=== PATIENT | female | born 1990 | race Hispanic/Latino ===

== ENCOUNTER 2018-03-08 22:52 | Emergency (ER) | payer OTHER, SELFPAY ==
[2018-03-09 00:27] LABS: Absolute Lymphocytes (CBC) 3.9 K/uL (0.7-4.9); Absolute Monocytes 0.6 K/uL (0.1-1.3); Basophils % 0.3 % (0-1.3); Eosinophils % 1.1 % (0-4.4); Hematocrit 40.2 % (36.0-45.0); Lymphocytes % 33.4 % (15.3-44.8); MCH 32.9 pg (27.0-35.0); MCV 97.7 fL (80-100); Monocytes % 5.5 % (3.3-12.3); RBC Red Blood Cell Count 4.12 M/uL (3.86-4.86)
[2018-03-09 00:49] LABS: Bicarbonate 28 mEq/L (21-31); Glucose Level 100 mg/dL (65-120); Lipase 21 U/L (22-51); Potassium 3.3 mEq/L (3.6-5.0); Sodium Level 137 mEq/L (135-145)
[2018-03-09 00:55] LABS: ALT/SGPT 23 IU/L (10-60); AST/SGOT 17 IU/L (10-42); Albumin 3.9 g/dL (3.2-5.5); Alkaline Phosphatase 70 IU/L (42-121); BUN Blood Urea Nitrogen 19 mg/dL (6-20); Bilirubin Direct < 0.1 mg/dL (0-0.2); Bilirubin Total 0.7 mg/dL (0.3-1.2); Protein, Total 7.7 g/dL (6.0-8.3)
[2018-03-09] MEDS ORDERED: POTASSIUM 25 MEQ EFFERV TAB ONE (01:30)
--- NOTE | 2018-03-09 01:35 | EDPHYS ---
Physician Documentation [facility] Name: Citlali Wright Age: 27 yrs Sex: Female : 1990 Arrival Date: 03/08/2018 Time: 22:55 Bed 19 Private MD: ED Physician Vladimir Friend HPI: 03/09 01:00 This 27 yrs old Female presents to ER via Ambulatory with complaints of pm1 Nausea/Vomiting, Diarrhea. 01:00 The patient presents to the emergency department with nausea, vomiting, 2 times since pm1 the onset of symptoms, diarrhea, 2 times since the onset of symptoms. Onset: The symptoms/episode began/occurred today. Possible causes: Stomach virus. Associated signs and symptoms: Pertinent positives: diarrhea, nausea, vomiting, Pertinent negatives: abdominal pain, constipation, dysuria, fever. Severity of symptoms: Pain is currently a 0 / 10. The patient has experienced a previous episode, last week. Patient with 24 hour stomach virus 1 week ago. Same symptoms of vomiting and diarrhea. patient was seen at [facility] for the complaint and discharged home. Patient without any vomiting or diarrhea until today. 2 episodes of vomiting and 2 episodes of diarrhea. Patient denies any abdominal pain to me. No fevers. 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 - Social history:: Smoking status: Patient/guardian denies using tobacco, Patient/guardian denies using alcohol. - Ebola Screening: : Patient negative for fever greater than or equal to 101.5 degrees Fahrenheit, and additional compatible Ebola Virus Disease symptoms Patient denies exposure to infectious person Patient denies travel to an Ebola-affected area in the 21 days before illness onset. ROS: 03/09 01:00 Constitutional: Negative for fever, chills, and weight loss, Eyes: Negative for injury, pm1 pain, redness, and discharge, ENT: Negative for injury, pain, and discharge, Neck: Negative for injury, pain, and swelling, Cardiovascular: Negative for chest pain, palpitations, and edema, Respiratory: Negative for shortness of breath, cough, wheezing, and pleuritic chest pain. Back: Negative for injury and pain, : Negative for injury, bleeding, discharge, and swelling, MS/Extremity: Negative for injury and deformity, Skin: Negative for injury, rash, and discoloration, Neuro: Negative for headache, weakness, numbness, tingling, and seizure. Abdomen/GI: Positive for nausea, vomiting, and diarrhea, Negative for abdominal pain. Exam: 01:00 Constitutional: This is a well developed, well nourished patient who is awake, alert, pm1 and in no acute distress. Head/Face: Normocephalic, atraumatic. Neck: Trachea midline, no thyromegaly or masses palpated, and no cervical lymphadenopathy. Supple, full range of motion without nuchal rigidity, or vertebral point tenderness. No Meningismus. Chest/axilla: Normal chest wall appearance and motion. Nontender with no deformity. No lesions are appreciated. Cardiovascular: Regular rate and rhythm with a normal S1 and S2. No gallops, murmurs, or rubs. Normal PMI, no JVD. No pulse deficits. Respiratory: Lungs have equal breath sounds bilaterally, clear to auscultation and percussion. No rales, rhonchi or wheezes noted. No increased work of breathing, no retractions or nasal flaring. 01:00 Back: No spinal tenderness. No costovertebral tenderness. Full range of motion. Skin: Warm, dry with normal turgor. Normal color with no rashes, no lesions, and no evidence of cellulitis. MS/ Extremity: Pulses equal, no cyanosis. Neurovascular intact. Full, normal range of motion. 01:00 Abdomen/GI: Inspection: abdomen appears normal, Bowel sounds: normal, Palpation: abdomen is soft and non-tender, in all quadrants, mass, is not appreciated, rebound tenderness, is not appreciated. 01:00 Neuro: Orientation: is normal, Mentation: is normal, Motor: is normal, moves all fours, Gait: is steady, at a normal pace, without difficulty. Vital Signs: 03/08 23:11 BP 113 / 76; Pulse 66; Resp 20; Temp 98.5(O); Pulse Ox 100% on R/A; Weight 90.72 kg ao (R); Height 4 ft. 11 in. (149.86 cm) (R); Pain 0/10; 03/09 00:22 BP 108 / 66; Pulse 62; Resp 18; Pulse Ox 100% on R/A; mw2 01:26 BP 112 / 68; Pulse 63; Resp 18; Pulse Ox 99% on R/A; ao 03/08 23:11 Body Mass Index 40.39 (90.72 kg, 149.86 cm) ao MDM: 03/08 23:11 Patient medically screened. pm1 03/09 01:30 ED course: patient is feeling better and wants to go home. No episodes of vomiting or pm1 diarrhea in the ER. 01:34 Data reviewed: vital signs. Data interpreted: Pulse oximetry: on room air is 99 %. pm1 Interpretation: normal. Counseling: I had a detailed discussion with the patient and/or guardian regarding: the historical points, exam findings, and any diagnostic results supporting the discharge/admit diagnosis, lab results, the need for outpatient follow up, to return to the emergency department if symptoms worsen or persist or if there are any questions or concerns that arise at home. 03/09 00:02 Order name: Urine Microscopic Only pm1 03/09 00:02 Order name: Basic Metabolic Panel; Complete Time: 01:08 pm03/09 00:02 Order name: CBC with Diff; Complete Time: 01:08 pm03/09 00:02 Order name: Hepatic Function; Complete Time: 01:08 pm03/09 00:02 Order name: Lipase; Complete Time: 01:08 pm03/09 01:09 Order name: Urine Dipstick--Ancillary (enter results) 2 03/09 00:02 Order name: Urine Test (obtain specimen); Complete Time: 01:27 pm03/09 00:02 Order name: IV Saline Lock; Complete Time: 00:22 pm03/09 00:02 Order name: Labs collected and sent; Complete Time: 00:22 pm03/09 00:02 Order name: Urine Dipstick-Ancillary (obtain specimen); Complete Time: : pm Administered Medications: 01:33 Drug: Potassium Effervescent Tablet 50 mEq Route: PO; ao 02:00 Follow up: Response: No adverse reaction ao Disposition: 03/09/18 01:35 Discharged to Home. Impression: Diarrhea, unspecified, Nausea and vomiting. - Condition is Stable. - Discharge Instructions: Food Choices to Help Relieve Diarrhea, Adult, Diarrhea, Nausea and Vomiting, Viral Gastroenteritis. - Prescriptions for Zofran 4 mg Oral Tablet - take 1 tablet by ORAL route every 8 hours As needed; 20 tablet. - Work release form, Medication Reconciliation Form, Thank You Letter form. - Follow up: Emergency Department; When: As needed; Reason: Worsening of condition. Follow up: Private Physician; When: 2 - 3 days; Reason: Recheck today's complaints, Continuance of care, Re-evaluation by your physician. - Problem is new. - Symptoms have improved. Addendum: 03/12/2018 08:53 Co-signature as Attending Physician, Vladimir Friend MD I agree with the assessment and w a plan of care. Signatures: Dispatcher [employer] EDJefe Pandey, RN RN Doug Quiroga, MANAGER INTEGRATION MANAGER INTEGRATION pm1 Phuc, MD BENSON [place] Corrections: (The following items were deleted from the chart) 03/09 01:48 01:35 03/09/2018 01:35 Discharged to Home. Impression: Diarrhea, unspecified; Nausea ao and vomiting. Condition is Stable. Forms are Medication Reconciliation Form, Thank You Letter, Antibiotic Education, Prescription Opioid Use. Follow up: Emergency Department; When: As needed; Reason: Worsening of condition. Follow up: Private Physician; When: 2 - 3 days; Reason: Recheck today's complaints, Continuance of care, Re-evaluation by your physician. Problem is new. Symptoms have improved. pm1
--- NOTE | 2018-03-09 01:35 | ER ---
Nurse's Notes [facility] Name: Citlali Wright Age: 27 yrs Sex: Female : 1990 Arrival Date: 03/08/2018 Time: 22:55 Bed 19 Private MD: Diagnosis: Diarrhea, unspecified;Nausea and vomiting Presentation: 03/08 23:06 Presenting complaint: Patient states: "I had been vomiting for a week. Last week I was ao at [facility] and diagnosed with bug. Yesterday I started to vomit again and my abdominal Thurst." patient points at the epigastric area. Patient denies fever and reports few diarrhea episodes. Transition of care: patient was not received from another setting of care. Onset of symptoms is unknown. Risk Assessment: Do you want to hurt yourself or someone else? Patient reports no desire to harm self or others. Initial Sepsis Screen: Does the patient meet any 2 criteria? No. Patient's initial sepsis screen is negative. Does the patient have a suspected source of infection? No. Patient's initial sepsis screen is negative. Care prior to arrival: None. 23:06 Method Of Arrival: Ambulatory ao 23:06 Acuity: MARIS 3 ao Triage Assessment: 23:13 General: Appears in no apparent distress. comfortable, Behavior is calm, cooperative, ao appropriate for age. Pain: Denies pain. Pain: Complains of pain in abdomen. EENT: No signs and/or symptoms were reported regarding the EENT system. Neuro: Level of Consciousness is awake, alert, obeys commands, Oriented to person, place, time, situation, Appropriate for age Moves all extremities. Full function Speech is normal, Facial symmetry appears normal. Cardiovascular: Capillary refill < 3 seconds Patient's skin is warm and dry. Respiratory: Airway is patent Respiratory effort is even, unlabored, Respiratory pattern is regular, symmetrical. GI: Abdomen is obese, Reports upper abdominal pain, diarrhea, nausea, vomiting. : No signs and/or symptoms were reported regarding the genitourinary system. Derm: Skin is pink, warm \\T\\ dry. Skin temperature is warm. Musculoskeletal: No signs and/or symptoms reported regarding the musculoskeletal system. 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 - Social history:: Smoking status: Patient/guardian denies using tobacco, Patient/guardian denies using alcohol. - Ebola Screening: : Patient negative for fever greater than or equal to 101.5 degrees Fahrenheit, and additional compatible Ebola Virus Disease symptoms Patient denies exposure to infectious person Patient denies travel to an Ebola-affected area in the 21 days before illness onset. Screenin:13 Abuse screen: Denies threats or abuse. Denies injuries from another. Nutritional ao screening: No deficits noted. Tuberculosis screening: No symptoms or risk factors identified. Fall Risk None identified. Assessment: 23:15 General: See triage assessment. GI: Abdomen is obese. ao 03/09 00:15 Reassessment: Patient appears in no apparent distress at this time. Patient and/or ao family updated on plan of care and expected duration. Pain level reassessed. Patient is alert, oriented x 3, equal unlabored respirations, skin warm/dry/pink. 01:25 Reassessment: Patient appears in no apparent distress at this time. Patient and/or ao family updated on plan of care and expected duration. Pain level reassessed. Patient is alert, oriented x 3, equal unlabored respirations, skin warm/dry/pink. Vital Signs: 03/08 23:11 BP 113 / 76; Pulse 66; Resp 20; Temp 98.5(O); Pulse Ox 100% on R/A; Weight 90.72 kg ao (R); Height 4 ft. 11 in. (149.86 cm) (R); Pain 0/10; 03/09 00:22 BP 108 / 66; Pulse 62; Resp 18; Pulse Ox 100% on R/A; mw2 01:26 BP 112 / 68; Pulse 63; Resp 18; Pulse Ox 99% on R/A; ao 03/08 23:11 Body Mass Index 40.39 (90.72 kg, 149.86 cm) ao ED Course: 03/08 22:55 Patient arrived in ED. al2 23:06 Jefe Gaitan, RN is Primary Nurse. ao 23:11 Triage completed. ao 23:11 Doug Bazan NP is PHCP. pm1 23:11 Vladimir Friend MD is Attending Physician. pm1 23:11 Arm band placed on right wrist. Patient placed in an exam room, Patient notified of ao wait time. 23:15 Patient has correct armband on for positive identification. Pulse ox on. NIBP on. ao 03/09 00:21 Inserted saline lock: 20 gauge in right antecubital area, using aseptic technique. mw2 Blood collected. 01:47 No provider procedures requiring assistance completed. IV discontinued, intact, ao bleeding controlled, No redness/swelling at site. Pressure dressing applied. Administered Medications: 01:33 Drug: Potassium Effervescent Tablet 50 mEq Route: PO; ao 02:00 Follow up: Response: No adverse reaction ao Outcome: 01:35 Discharge ordered by . pm1 01:48 Discharged to home ambulatory. ao 01:48 Condition: stable 01:48 Discharge instructions given to patient, Instructed on discharge instructions, follow up and referral plans. Demonstrated understanding of instructions, follow-up care, medications, Prescriptions given X 1. 01:48 Patient left the ED. ao Signatures: Jefe Gaitan RN RN Doug Quiroga NP SUPPLY OFFICER pm1 Holly Michel al2 Evette Nascimento mw2 Corrections: (The following items were deleted from the chart) 01:26 00:15 BP 112 / 68; Pulse 63bpm; Resp 18bpm; Pulse Ox 99% RA; ao ao
[2018-03-09 01:40] LABS: Urine Glucose NEGATIVE (NEG)
[2018-03-09 01:41] LABS: Urine Blood NEGATIVE (NEG); Urine Protein NEGATIVE (NEG)
[2018-03-09 01:52] LABS: Urine Bacteria <20 /HPF (<20); Urine Culture Reflex Order NOT NEEDED; Urine Mucus HEAVY /HPF (NONE SEEN); Urine RBC NONE SEEN /HPF (NONE SEEN)
[2018-03-09 01:53] VITALS: TEMP 98.5
[2018-03-09] MEDS ORDERED: NA CHLORIDE 0.9% 250 ML ONE (01:54)
[2018-03-09 01:55] VITALS: BP 112/68; O2SAT 99
== END 2018-03-09 01:48 | disposition home or self-care (01) ==
LOC: ER 22:52
DX: R19.7 Diarrhea, unspecified (principal)
CPT/HCPCS: 36415; 80048; 80076; 81003; 81015; 83690; 85025; 99284

== ENCOUNTER 2021-04-02 12:46 | Emergency (ER) | payer SELFPAY ==
--- OUTSIDE RECORDS SUMMARY | 2021-04-02 12:49 | XMS REPORT | Continuity of Care Document ---
:1990 Author Organization [facility] t Address [address] [place] [address] Care Team Providers Name Role Phone Ihsan Joshua DO Attending Clinician Dillan Box Attending Clinician Problems This patient has no known problems. Allergies, Adverse Reactions, Alerts This patient has no known allergies or adverse reactions. Medications This patient has no known medications. Procedures This patient has no known procedures. Encounters Start End Encounter Admission Attending Care Care Encounter Source Date/Time Date/Time Type Type Clinicians Facility Department ID 2021-01-02 2021-01-02 Patient KIRA Joshua [id number] 00:00:00 00:00:00 Outreach [facility] [id number] Ihsan [facility] [id number] [place] [id number] 2019-12-10 2019-12-10 Telephone Chriss [facility] [id number] 00:00:00 00:00:00 Alison Grimaldo LICENSED PHARMACIST [id number] [facility] [id number] MATERNAL [id number] & CHILD 107 [facility] 2019-12-01 2019-12-01 Office Chriss [facility] [id number] 09:40:43 10:25:41 Visit Alison C LICENSED PHARMACIST [id number] [facility] [id number] MATERNAL [id number] & CHILD 107 [facility] Results This patient has no known results.
--- NOTE | 2021-04-02 14:24 | RAD REPORT ---
EXAM DESCRIPTION: RAD - Chest Pa And Lat (2 Views) - 04/02/2021 2:19 pm CLINICAL HISTORY: Chest pain;Cough Chest pain. COMPARISON: <Comparisons> FINDINGS: The lungs are clear. The heart is normal in size. No displaced fractures. IMPRESSION: No acute or concerning finding suspected.
[2021-04-02 16:14] LABS: Absolute Lymphocytes (CBC) 1.2 K/uL (0.7-4.9); Basophils % 0.4 % (0-1.3); Hematocrit 40.8 % (36.0-45.0); Lymphocytes % 15.6 % (15.3-44.8); MPV 8.2 fL (7.6-11.3); RBC Red Blood Cell Count 4.15 M/uL (3.86-4.86)
[2021-04-02 16:22] LABS: BUN Blood Urea Nitrogen 12 mg/dL (7-18); Bicarbonate 26 mmol/L (21-32); Glucose Level 90 mg/dL (74-106); Potassium 3.8 mmol/L (3.5-5.1); Sodium Level 139 mmol/L (136-145)
--- NOTE | 2021-04-02 16:59 | EDPHYS ---
Physician Documentation [facility] Name: Citlali Wright Age: 30 yrs Sex: Female : 1990 Arrival Date: 04/02/2021 Time: 12:50 Bed 14 Private MD: ED Physician Carmen Jama HPI: 04/03 01:04 This 30 yrs old Female presents to ER via Ambulatory with complaints of Chest kb Tightness, Cough - blood. 01:03 Pt reports cough, congestion, blood tinged sputum, fatigue, malaise and chest pain for kb 3 days. States she was around some friends that were all sick, then her kids got sick (all tested negative for flu and covid at professor in family studies's office) and now she is sick with similar symptoms. 01:04 The patient or guardian reports cough, that is intermittent, described as mild, with no kb sputum, flu symptoms, myalgias. Onset: The symptoms/episode began/occurred 3 day(s) ago. Severity of symptoms: At their worst the symptoms were moderate, in the emergency department the symptoms are unchanged. Modifying factors: The symptoms are alleviated by nothing, the symptoms are aggravated by nothing. Associated signs and symptoms: Pertinent positives: rhinorrhea, sore throat. The patient has not experienced similar symptoms in the past. The patient has not recently seen a physician. LAST SCOURER: 04/02 16:53 LMP N/A - control method jl7 Historical: - Allergies: 13:33 No Known Allergies; ll1 - PMHx: 13:33 Asthma; ll1 - PSHx: 13:33 None; ll1 - Immunization history:: Flu vaccine is not up to date. - Social history:: Smoking status: Patient denies any tobacco usage or history of. ROS: 04/03 01:05 Abdomen/GI: Negative for abdominal pain, nausea, vomiting, diarrhea, and constipation. kb Constitutional: Positive for body aches, chills, fatigue, fever, malaise. ENT: Positive for rhinorrhea, sinus congestion. Cardiovascular: Positive for chest pain. Respiratory: Positive for cough, hemoptysis. All other systems are negative. Exam: 01:05 Constitutional: This is a well developed, well nourished patient who is awake, alert, kb and in no acute distress. Head/Face: Normocephalic, atraumatic. ENT: Moist Mucous membranes Cardiovascular: Regular rate and rhythm with a normal S1 and S2. No gallops, murmurs, or rubs. No pulse deficits. Respiratory: Respirations even and unlabored. No increased work of breathing, no retractions or nasal flaring. Abdomen/GI: Soft, non-tender. No distention Skin: Warm, dry with normal turgor. Normal color. MS/ Extremity: Pulses equal, no cyanosis. Neurovascular intact. Full, normal range of motion. Neuro: Awake and alert, GCS 15, oriented to person, place, time, and situation. Moves all extremities. Normal gait. Psych: Awake, alert, with orientation to person, place and time. Behavior, mood, and affect are within normal limits. Vital Signs: 04/02 13:30 BP 125 / 99; Pulse 88; Resp 17; Temp 97.0; Pulse Ox 100% ; Weight 90.26 kg; Height 4 ll1 ft. 11 in. (149.86 cm); Pain 4/10; 16:56 BP 112 / 98; Pulse 69; Resp 15; Pulse Ox 100% ; jl7 13:30 Body Mass Index 40.19 (90.26 kg, 149.86 cm) ll1 MDM: 15:13 Patient medically screened. 04/03 01:03 Data reviewed: vital signs, nurses notes. Data interpreted: Pulse oximetry: on room air kb is 100 %. Interpretation: normal. Counseling: I had a detailed discussion with the patient and/or guardian regarding: the historical points, exam findings, and any diagnostic results supporting the discharge/admit diagnosis, lab results, radiology results, the need for outpatient follow up, a family practitioner, to return to the emergency department if symptoms worsen or persist or if there are any questions or concerns that arise at home. 04/02 13:35 Order name: Flu 04/02 13:35 Order name: Strep kb 04/02 13:35 Order name: COVID-19 : Document "Date of Symptom Onset" if Symptomatic. kb 04/02 14:59 Order name: CORONAVIRUS EDMS 04/02 15:18 Order name: CBC with Diff kb 04/02 15:18 Order name: Basic Metabolic Panel kb 04/02 13:35 Order name: Chest Pa And Lat (2 Views) XRAY kb 04/02 15:18 Order name: D-Dimer kb 04/02 15:59 Order name: Group A Streptococcus Rapid Sc; Complete Time: 16:01 EDFL 04/02 16:00 Order name: Influenza Screen (A ; Complete Time: 16:01 EDFL 04/02 16:01 Order name: SARS-COV-2 RT PCR; Complete Time: 16:01 EDMS 04/02 16:22 Order name: Basic Metabolic Panel; Complete Time: 16:26 EDFL 04/02 16:31 Order name: CBC with Automated Diff; Complete Time: 16:48 EDMS 04/02 16:32 Order name: D-Dimer; Complete Time: 16:48 EDMS 04/02 14:24 Order name: RAD; Complete Time: 14:25 EDFL 04/02 15:57 Order name: Labs collected and sent; Complete Time: 15:57 jl7 04/02 15:57 Order name: IV Saline Lock; Complete Time: 15:58 jl7 Administered Medications: No medications were administered Disposition: 04/02/21 16:59 Discharged to Home. Impression: Acute upper respiratory infection, unspecified. - Condition is Stable. - Discharge Instructions: Upper Respiratory Infection, Adult, [id number], Viral Respiratory Infection, [id number]. - Work release form, Medication Reconciliation Form, Thank You Letter, Antibiotic Education, Prescription Opioid Use form. - Follow up: Emergency Department; When: As needed; Reason: Worsening of condition. Follow up: Private Physician; When: 2 - 3 days; Reason: Recheck today's complaints, Continuance of care, Re-evaluation by your physician. Signatures: Dispatcher [employer] [facility] Flori James, MONIQUE-Dillan ASHRAFP-Ayesha Armenta RN RN jl7 Latanya Lara RN RN ll1 Corrections: (The following items were deleted from the chart) 04/02 17:15 16:59 04/02/2021 16:59 Discharged to Home. Impression: Acute upper respiratory jl7 infection, unspecified. Condition is Stable. Forms are Medication Reconciliation Form, Thank You Letter, Antibiotic Education, Prescription Opioid Use. Follow up: Emergency Department; When: As needed; Reason: Worsening of condition. Follow up: Private Physician; When: 2 - 3 days; Reason: Recheck today's complaints, Continuance of care, Re-evaluation by your physician. kb 04/03 01:05 01:03 Pt reports cough, congestion, blood tinged sputum, fatigue, malaise and chest kb pain. kb
--- NOTE | 2021-04-02 16:59 | ER ---
Nurse's Notes [facility] Name: Citlali Wright Age: 30 yrs Sex: Female : 1990 Arrival Date: 04/02/2021 Time: 12:50 Bed 14 Private MD: Diagnosis: Acute upper respiratory infection, unspecified Presentation: 04/02 13:30 Chief complaint: Patient states: Cough, sore throat, chest discomfort with cough since ll1 Friday. Blood in sputum and nasal discharge since yesterday. + hot/sweaty, no known fever though. +fatigue, tired, weak. SOB with exertion. Coronavirus screen: Client denies travel out of the [place] in the last 14 days. congestion, cough unrelated to allergies, diarrhea, difficulty breathing, fatigue, headache, nausea, runny nose, shortness of breath, sore throat, vomiting. Client presents with at least one sign or symptom that may indicate coronavirus-19. Standard/surgical mask placed on the client. Ebola Screen: Patient denies travel to an Ebola-affected area in the 21 days before illness onset. Initial Sepsis Screen: Does the patient meet any 2 criteria? No. Patient's initial sepsis screen is negative. Does the patient have a suspected source of infection? Yes: Productive cough/pneumonia. Risk Assessment: Do you want to hurt yourself or someone else? Patient reports no desire to harm self or others. Onset of symptoms was March 31, 2021. 13:30 Method Of Arrival: Ambulatory 1 13:30 Acuity: MARIS 3 ll1 BRACER: 16:53 LMP N/A - control method jl7 Historical: - Allergies: 13:33 No Known Allergies; ll1 - PMHx: 13:33 Asthma; ll1 - PSHx: 13:33 None; ll1 - Immunization history:: Flu vaccine is not up to date. - Social history:: Smoking status: Patient denies any tobacco usage or history of. Screenin:30 Abuse screen: Denies threats or abuse. Denies injuries from another. Nutritional jl7 screening: No deficits noted. Tuberculosis screening: No symptoms or risk factors identified. Fall Risk IV access (20 points). Total Thomas Fall Scale indicates No Risk (0-24 pts). Assessment: 15:30 General: Appears in no apparent distress. uncomfortable, Behavior is calm, cooperative, jl7 appropriate for age. Pain: Complains of pain in chest Pain does not radiate. Pain currently is 0 out of 10 on a pain scale. at worst was 4 out of 10 on a pain scale. Quality of pain is described as Sore from coughing Pain began 2-3 days ago. Is episodic. Neuro: Level of Consciousness is awake, alert, obeys commands, Oriented to person, place, time, situation. Cardiovascular: Patient's skin is warm and dry. Rhythm is regular. Respiratory: Airway is patent Respiratory effort is even, unlabored, Respiratory pattern is regular, symmetrical. Derm: Skin is pink, warm \\T\\ dry. 16:30 Reassessment: Patient appears in no apparent distress at this time. No changes from jl7 previously documented assessment. Patient and/or family updated on plan of care and expected duration. Pain level reassessed. Patient is alert, oriented x 3, equal unlabored respirations, skin warm/dry/pink. Vital Signs: 13:30 BP 125 / 99; Pulse 88; Resp 17; Temp 97.0; Pulse Ox 100% ; Weight 90.26 kg; Height 4 ll1 ft. 11 in. (149.86 cm); Pain 4/10; 16:56 BP 112 / 98; Pulse 69; Resp 15; Pulse Ox 100% ; jl7 13:30 Body Mass Index 40.19 (90.26 kg, 149.86 cm) ll1 ED Course: 12:50 Patient arrived in ED. as 13:33 Triage completed. ll1 13:33 Arm band placed on. ll1 13:34 [facility]-C [facility]. kb 13:34 Carmen Jama MD is Attending Physician. kb 14:00 COVID swab sent to lab. Flu and/or RSV swab sent to lab. Strep swab sent to lab. jl7 14:12 X-ray completed. Patient tolerated procedure well. Patient moved to radiology sw AMBULATORY. Patient moved back from radiology. 15:26 Ayesha Arias, SYDNEY is Primary Nurse. jl7 15:30 Patient has correct armband on for positive identification. Placed in gown. Bed in low jl7 position. Call light in reach. Side rails up X 1. Pulse ox on. NIBP on. 15:30 Initial lab(s) drawn, by me, sent to lab. Inserted saline lock: 20 gauge in right jl7 antecubital area, using aseptic technique. Blood collected. Patient maintains SpO2 saturation greater than 95% on room air. 16:52 D-Dimer Sent. jl7 16:52 CORONAVIRUS Sent. jl7 16:52 CBC with Diff Sent. jl7 16:52 Basic Metabolic Panel Sent. jl7 16:53 COVID-19 : Document "Date of Symptom Onset" if Symptomatic. Sent. jl7 16:53 Strep Sent. jl7 16:53 Flu Sent. jl7 16:53 Chest Pa And Lat (2 Views) XRAY Sent. jl7 17:14 No provider procedures requiring assistance completed. IV discontinued, intact, jl7 bleeding controlled, No redness/swelling at site. Pressure dressing applied. Administered Medications: No medications were administered Outcome: 16:59 Discharge ordered by MD. kb 17:14 Discharged to home ambulatory. jl7 17:14 Condition: stable 17:14 Discharge instructions given to patient, Instructed on discharge instructions, follow up and referral plans. Demonstrated understanding of instructions, follow-up care. 17:15 Patient left the ED. jl7 Signatures: Flori James, METAL SHEET ROLLER OPERATOR-C METAL SHEET ROLLER OPERATOR-Evita Cristina Shannon sw Leal, Jahala, RN RN jl7 Latanya Lara RN RN ll1
[2021-04-02 18:37] VITALS: TEMP 97; O2SAT 100
[2021-04-02 18:48] VITALS: BP 112/98
== END 2021-04-02 17:15 | disposition home or self-care (01) ==
LOC: ER 12:46
DX: J06.9 Acute upper respiratory infection, unspecified (principal); Z20.822 Contact with and (suspected) exposure to COVID-19; J45.909 Unspecified asthma, uncomplicated
CPT/HCPCS: 36415; 71046; 80048; 85025; 85379; 87070; 87081; 87804; 99284; U0003

== ENCOUNTER → 2023-11-26 | Emergency (ER) | payer SELFPAY ==
[~2023-11-26] MED LIST: HYDROCODONE/APAP 10/325 TAB ONE
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
--- NOTE | 2023-11-26 17:41 | RAD REPORT ---
EXAM DESCRIPTION: CT - CTFB CLINICAL HISTORY: FACIAL PAIN COMPARISON: No comparisons TECHNIQUE: Axial 2 mm thick images of the face were obtained with sagittal and coronal reconstructio n images. All CT scans are performed using dose optimization technique as appropriate and may include automated exposure control or mA/KV adjustment according to patient size. FINDINGS: No acute facial bone fracture is seen.The mandible is intact. The globes and orbital contents are grossly unremarkable.The paranasal sinuses and mastoids are clear . IMPRESSION: Negative for facial bone fracture.
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
[2023-11-26 18:30] VITALS: BP 120/97; TEMP 98.1; O2SAT 99
== END ==
LOC: ER 17:00
DX: S00.12XA Contusion of left eyelid and periocular area, initial encounter (principal); S00.531A Contusion of lip, initial encounter
CPT/HCPCS: 70450; 70486; 76377